=== PATIENT | female | born 2000 | race Caucasian/White ===

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

== ENCOUNTER 2021-02-20 13:45 | Emergency (ER) | payer BC ==
[2021-02-20] MEDS ORDERED: Ibuprofen 800 MG Tab PO STA (14:12)
--- NOTE | 2021-02-20 15:11 | CT ---
INDICATION: Syncope - fainted twice today, nausea, migraine, since [address] HEAD WITHOUT CONTRAST: Spiral 3.75 mm axial sections were obtained through the brain without contrast with axial, sagittal and coronal reconstructions, 02/20/21 - no comparisons. TOTAL EXAM DLP: 1218.89 mGy/cm. The visualized paranasal sinuses and mastoid air cells were well aerated. No specific orbital abnormality was noted. No cranial abnormality was noted. No shift of midline structures or definite ventricular abnormality was identified. A cavum septum pellucidi and prominent cavum septum vergae are noted, most likely normal variants. The simms-white matter interface appears normal. No definite abnormal areas of density could be identified. IMPRESSION: Normal CT brain without contrast Report was called to Dr. Stephens at 1450 hours. [facility]
--- NOTE | 2021-02-20 17:25 | EDM.PDOC ---
ED HPI GENERAL MEDICAL PROBLEM - General Chief Complaint: Syncope Stated Complaint: SYNCOPAL EPISODES Time Seen by Provider: 02/20/21 13:45 Source of Information: Reports: Patient History Limitations: Reports: No Limitations - History of Present Illness INITIAL COMMENTS - FREE TEXT/NARRATIVE: Patient is a 20 YO WF who presented to the ED because of 2 syncopal episode. The first episode occurred at about 0750 when patient got up from bed she felt wid, her heart pounding, nauseated and then she had syncopal episode. According to her boyfriend she was unresponsive for a minute and then then she looks confused and had a headache. The second episode was when she was sitting on the couch and her boyfriend witnessed the same syncopal episode. While in the ED she had an irregular rhythm, NSR, and a junctional rhythm. - Related Data Allergies Allergy/AdvReac Type Severity Reaction Status Date / Time No Known Allergies Allergy Verified 02/20/21 14:12 Home Meds: Home Meds Citalopram Hydrobromide [Celexa] 30 mg PO DAILY 12/15/18 [History] Ibuprofen 200 mg PO Q6H PRN 12/15/18 [History] buPROPion [Wellbutrin] 75 mg PO DAILY 12/15/18 [History] hydrOXYzine HCL [hydrOXYzine] 12.5 mg PO ASDIRECTED PRN 12/15/18 [History] QUEtiapine Fumarate [Quetiapine Fumarate] 300 mg PO BEDTIME 02/20/21 [History] Past Medical History HEENT History: Reports: Impaired Vision Cardiovascular History: Reports: None Respiratory History: Reports: None Gastrointestinal History: Reports: Other (See Below) Other Gastrointestinal History: C. DIFF Genitourinary History: Reports: None [employer] History: Reports: None Musculoskeletal History: Reports: None Neurological History: Reports: None Psychiatric History: Reports: Anxiety Endocrine/Metabolic History: Reports: None Hematologic History: Reports: None Immunologic History: Reports: None Oncologic (Cancer) History: Reports: None Dermatologic History: Reports: None - Past Surgical History Head Surgeries/Procedures: Reports: None HEENT Surgical History: Reports: Oral Surgery Cardiovascular Surgical History: Reports: None Respiratory Surgical History: Reports: None GI Surgical History: Reports: None Female Surgical History: Reports: None Endocrine Surgical History: Reports: None Neurological Surgical History: Reports: None Musculoskeletal Surgical History: Reports: None Oncologic Surgical History: Reports: None Dermatological Surgical History: Reports: None Social & Family History - Family History Family Medical History: No Pertinent Family History - Tobacco Use Tobacco Use Status *Q: Never Tobacco User - Caffeine Use Caffeine Use: Reports: None - Recreational Drug Use Recreational Drug Use: No ED ROS GENERAL - Review of Systems Review Of Systems: See Below Constitutional: Reports: No Symptoms HEENT: Reports: No Symptoms Respiratory: Reports: No Symptoms Cardiovascular: Reports: No Symptoms Endocrine: Reports: No Symptoms GI/Abdominal: Reports: No Symptoms : Reports: No Symptoms Musculoskeletal: Reports: No Symptoms Skin: Reports: No Symptoms Neurological: Reports: No Symptoms Psychiatric: Reports: Anxiety, Depression Hematologic/Lymphatic: Reports: No Symptoms Immunologic: Reports: No Symptoms ED EXAM, GENERAL - Physical Exam Exam: See Below Exam Limited By: No Limitations General Appearance: Alert, No Apparent Distress Eye Exam: Bilateral Eye: PERRL Ears: Normal External Exam, Normal Canal Nose: Normal Inspection, Normal Mucosa, No Blood Throat/Mouth: Normal Inspection, Normal Lips, Normal Teeth Head: Atraumatic, Normocephalic Neck: Normal Inspection, Supple, Non-Tender, Full Range of Motion Respiratory/Chest: No Respiratory Distress, Lungs Clear, Normal Breath Sounds, No Accessory Muscle Use, Chest Non-Tender Cardiovascular: Normal Peripheral Pulses, Regular Rate, Rhythm, No Edema, No Gallop, No JVD, No Murmur GI/Abdominal: Normal Bowel Sounds, Soft, Non-Tender Back Exam: Normal Inspection, Full Range of Motion Extremities: Normal Inspection, Normal Range of Motion #1 Interpretation EKG Date: 02/20/21 Time: 13:52 Rhythm: NSR Rate (Beats/Min): 96 Blackwell: Normal P-Wave: Present QRS: Normal ST-T: Normal QT: Normal WY/PQ Interval: 122 Comparison: NA - No Prior EKG EKG Interpretation Comments: NSR #2 Interpretation EKG Date: 02/20/21 Time: 13:54 Rhythm: A-Fib Rate (Beats/Min): 106 Blackwell: Normal P-Wave: Present QRS: Normal ST-T: Normal QT: Normal Comparison: Change From Previous EKG EKG Interpretation Comments: AFIB Ventricular bigeminy #3 Interpretation EKG Date: 02/20/21 Time: 15:33 Rhythm: NSR Rate (Beats/Min): 75 Blackwell: Normal P-Wave: Present QRS: Normal ST-T: Normal QT: Normal WY/PQ Interval: 125 Comparison: Change From Previous EKG EKG Interpretation Comments: NSR #4 Interpretation EKG Date: 02/20/21 Time: 15:51 Rhythm: Other (junctional rhythm) Rate (Beats/Min): 82 Blackwell: Normal P-Wave: Present QRS: Normal ST-T: Normal QT: Normal Comparison: Change From Previous EKG (Accelerated juntional rhythm) Course - Vital Signs Text/Narrative:: Lab/EKG result was reviewed and discussed with patient, her mom and Dr. Norton Head CT-negative Ibuprofen 800 mg PO x1 Last Recorded V/S: Last Vital Signs Temp 36.2 C 02/20/21 13:45 Pulse 92 02/20/21 13:45 Resp 18 02/20/21 13:45 BP 116/75 02/20/21 13:45 Pulse Ox 98 02/20/21 13:45 - Orders/Labs/Meds Orders: Active Orders 24 hr Category Date Time Status EKG 12 Lead [EK] Routine Ther 02/20/21 13:57 Ordered EKG 12 Lead [EK] Routine Ther 02/20/21 15:06 Ordered EKG 12 Lead [EK] Routine Ther 02/20/21 15:51 Ordered EKG 12 Lead [EK] Routine Ther 02/20/21 15:51 Ordered Labs: Laboratory Tests 02/20/21 02/20/21 02/20/21 Range/Units 14:10 14:10 14:10 WBC 6.6 (3.0-10.3) x10-3/uL RBC 4.59 (3.60-5.20) x10(6)uL Hgb 13.8 (11.4-15.5) g/dL Hct 41.5 (34.2-48.2) % MCV 90.3 (76.7-100.5) fL MCH 30.0 (23.9-33.9) pg MCHC 33.2 (31.9-34.8) g/dL RDW 12.9 (12.3-16.5) % Plt Count 212 (151-488) x10(3)uL MPV 8.4 (7.1-12.4) fL Neut % (Auto) 61.8 (30.8-76.2) % Lymph % (Auto) 30.7 (18.4-52.1) % [place] % (Auto) 6.1 (4.4-15.7) % Eos % (Auto) 1.0 (0.6-8.1) % Baso % (Auto) 0.4 (0.2-1.5) % Neut # (Auto) 4.1 (1.5-6.3) x10-3/uL Lymph # (Auto) 2.0 (1.0-4.4) x10-3/uL [place] # (Auto) 0.4 (0.3-1.0) x10-3/uL Eos # (Auto) 0.1 (0.0-0.8) x10-3/uL Baso # (Auto) 0.0 (0.0-0.1) x10-3/uL Sodium 142 (135-145) mmol/L Potassium 3.5 (3.5-5.3) mmol/L Chloride 107 (100-110) mmol/L Carbon Dioxide 26 (21-32) mmol/L BUN 10 (7-18) mg/dL Creatinine 0.9 (0.55-1.02) mg/dL Est Cr Clr Drug Dosing 95.15 mL/min Estimated GFR (MDRD) > 60 (>60) BUN/Creatinine Ratio 11.1 (9-20) Glucose 93 (80-116) mg/dL Calcium 8.7 (8.6-10.2) mg/dL Total Bilirubin 1.7 H (0.1-1.3) mg/dL AST 11 (5-25) IU/L ALT 14 (12-36) U/L Alkaline Phosphatase 82 (56-112) IU/L Troponin I < 4.0 L (4.0-60.3) pg/mL Total Protein 7.0 (6.0-8.0) g/dL Albumin 3.9 (3.5-5.2) g/dL Globulin 3.1 g/dL Albumin/Globulin Ratio 1.3 Meds: Medications Discontinued Medications Generic Name Dose Route Start Last Admin Trade Name Freq PRN Reason Stop Dose Admin Ibuprofen 800 mg 02/20/21 14:12 02/20/21 14:41 Ibuprofen 800 Mg Tab PO 02/20/21 14:13 800 mg NOW STA Administration Departure - Departure Time of Disposition: 17:00 Disposition: DC/Tfer to Acute Hospital 02 Reason for Transfer *Q: Other Condition: Good Clinical Impression: Syncopal episodes, Migraine, Anxiety, Depression Referrals: Nina Fink, [employer] [Primary Care Provider] - Forms: ED Department Discharge Sepsis Event Note (ED) - Evaluation Sepsis Screening Result: No Definite Risk - My Orders Last 24 Hours: My Active Orders 02/20/21 13:57 EKG 12 Lead [EK] Routine 02/20/21 15:06 EKG 12 Lead [EK] Routine 02/20/21 15:51 EKG 12 Lead [EK] Routine EKG 12 Lead [EK] Routine - Assessment/Plan Last 24 Hours: My Active Orders 02/20/21 13:57 EKG 12 Lead [EK] Routine 02/20/21 15:06 EKG 12 Lead [EK] Routine 02/20/21 15:51 EKG 12 Lead [EK] Routine EKG 12 Lead [EK] Routine
== END 2021-02-20 18:16 ==
LOC: FB.ED 13:45
DX: G43.909 Migraine, unspecified, not intractable, without status migrainosus (principal); R55 Syncope and collapse; F41.9 Anxiety disorder, unspecified; F32.A Depression, unspecified
CPT/HCPCS: 36415; 70450; 80053; 84484; 85025; 93005; 99285-25; A9270-GY